=== PATIENT | male | born 1945 | race African-American/Black ===

== ENCOUNTER 2019-05-08 16:03 | Emergency (ER) | payer OTHER ==
[~2019-05-08] VITALS: Ht 177.8 cm; Wt 81.7 kg
[2019-05-08] MEDS ORDERED: GLUCOPHAGE1000 MG PO ×2 (16:43→19:01)
[2019-05-08] MEDS ORDERED: COZAAR 25 MG TA25 M1 PO (16:43)
[2019-05-08 16:46] LABS: BASOPHILS 0.9 % (0.0-2.0); EOSINOPHILS 1.3 % (0.0-3.0); HEMATOCRIT 43.9 % (42.0-52.0); HEMOGLOBIN 13.7 gm/dL (14.0-18.0); LYMPHOCYTES 35.6 % (24.0-44.0); MCH 22.8 pg (26.0-34.0); MCHC 31.2 g/dL (28.0-37.0); MCV 72.9 fL (80.0-100.0); MONOCYTES 9.1 % (1.0-8.0); PLATELET COUNT 138 thou/uL (150-400); POLYS 53.1 % (36.0-66.0); RBC 6.02 mil/uL (4.50-6.00); WBC 5.7 thou/uL (4.0-11.0)
[2019-05-08 17:32] LABS: ALBUMIN 3.8 g/dL (3.4-5.0); CALCIUM 9.4 mg/dL (8.5-10.1); CREATININE 1.4 mg/dL (0.7-1.3); POTASSIUM 4.5 mmol/L (3.5-5.1); TOTAL BILIRUBIN 0.4 mg/dL (<0.1-1.0); TOTAL PROTEIN 7.9 g/dL (6.4-8.2)
[2019-05-08] MEDS ORDERED: COZAAR 25 MG TA25 M2 PO (19:01)
[2019-05-08] MEDS ORDERED: XALATAN2.5 ML OPHTHALMIC (19:01)
[2019-05-08] MEDS ORDERED: TIMOLOL MALEATE5 M2 OPHTHALMIC (19:01)
[2019-05-08 19:23] VITALS: BP 141/72
--- NOTE | 2019-05-09 08:26 | EKG ---
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 : 1945 Requested By: Veena Cowan Order Number: [id number] MD: Johnson Kay Measurements Intervals [place] Rate: 79 P: 55 MD: 159 QRS: -35 QRSD: 86 T: -19 QT: 365 QTc: 419 Interpretive Statements Sinus rhythm Probable left atrial enlargement Left axis deviation Anteroseptal infarct, old Borderline T abnormalities, inferior leads No previous ECG available for comparison Electronically Signed On 05-09-2019 8:26:27 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
== END 2019-05-08 19:20 | disposition home or self-care (01) ==
LOC: ER 16:03
PROVIDERS: Emergency Medicine Emergency Medical Services
DX: R07.89 Other chest pain (principal); I10 Essential (primary) hypertension; E11.9 Type 2 diabetes mellitus without complications; Z88.0 Allergy status to penicillin; Z79.899 Other long term (current) drug therapy

== ENCOUNTER 2019-06-22 13:54 | Emergency (ER) | payer OTHER ==
[~2019-06-22] VITALS: Ht 177.8 cm; Wt 81.7 kg
[~2019-06-22 13:54] MED LIST: COZAAR 25 MG TA25 M1 PO; COZAAR 25 MG TA25 M2 PO; GLUCOPHAGE1000 MG PO; TIMOLOL MALEATE5 M2 OPHTHALMIC; XALATAN2.5 ML OPHTHALMIC
[2019-06-22] MEDS ORDERED: PROAIR HFA8.5 GM INH (15:28)
[2019-06-22] MEDS ORDERED: XALATAN2.5 ML OPHTHALMIC (15:28)
[2019-06-22] MEDS ORDERED: TIMOLOL MALEATE5 M2 OPHTHALMIC (15:28)
[2019-06-22] MEDS ORDERED: PREDNISONE 20 M20 MG PO (15:28)
[2019-06-22] MEDS ORDERED: TESSALON PERLE100 MG PO (15:28)
[2019-06-22] MEDS ORDERED: COZAAR 25 MG TA25 M2 PO (15:28)
[2019-06-22] MEDS ORDERED: GLUCOPHAGE1000 MG PO (15:28)
[2019-06-22 15:44] VITALS: BP 162/80
--- NOTE | 2019-06-23 10:24 | EKG ---
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 : 1945 Requested By: Ila Hernandez Order Number: [id number] MD: Esteban Rizzo Measurements Intervals [place] Rate: 76 P: 6 TN: 135 QRS: -29 QRSD: 87 T: -43 QT: 379 QTc: 427 Interpretive Statements Sinus rhythm Left ventricular hypertrophy Septal Q waves, possibly due to LVH Abnormal T, consider ischemia, diffuse leads Compared to ECG 05/08/2019 16:10:23 Left ventricular hypertrophy now present T-wave abnormality still present Electronically Signed On 06-23-2019 10:23:55 T[employer] CURATIVE SPECIALIST by Esteban Rizzo [email or web address] <ELECTRONICALLY SIGNED> By: Esteban Rizzo MD 06/23/19 1023 141 141 Esteban Rizzo MD /PEDRO
== END 2019-06-22 15:44 | disposition home or self-care (01) ==
LOC: ER 13:54
DX: J06.9 Acute upper respiratory infection, unspecified (principal); I10 Essential (primary) hypertension; E11.9 Type 2 diabetes mellitus without complications; Z76.0 Encounter for issue of repeat prescription; Z88.0 Allergy status to penicillin